=== PATIENT | male | born 1945 | race Hispanic/Latino ===

== ENCOUNTER 2023-11-30 16:52 | Inpatient (IN) | payer MEDICAID, SELFPAY ==
[2023-11-30] MEDS ORDERED: Acetaminophen 325 MG TAB PO PRN (17:27)
[2023-11-30] MEDS ORDERED: D5 1/2 NS w/20 mEq KCL 1,000 ML IV PRN (17:27)
[2023-11-30] MEDS ORDERED: Bisacodyl 10 MG SUPP PR PRN (17:27)
[2023-11-30] MEDS ORDERED: Dextrose 5 %-0.45 % NaCl 1,000 ML IV PRN (17:27)
[2023-11-30] MEDS ORDERED: NS 0.9% w/ 20 MEQ KCL 1,000 ML IV PRN ×2 (17:27)
[2023-11-30] MEDS ORDERED: Electrolyte Replacement Protocol IVPB SCH (17:27)
[2023-11-30] MEDS ORDERED: Senokot S 8.6-50 MG TAB PO PRN (17:27)
[2023-11-30] MEDS ORDERED: Dextrose 50% Abboject 50 ML SYRINGE SLOW IVP PRN (17:27)
[2023-11-30] MEDS ORDERED: Bisacodyl 5 MG TAB PO PRN (17:27)
[2023-11-30] MEDS ORDERED: Ondansetron PF 4 MG/2 ML Vial IVP PRN (17:27)
[2023-11-30] MEDS ORDERED: Sodium Chloride 0.9% 1,000 ML IV PRN ×4 (17:27)
[2023-11-30 18:03] VITALS: BMI 27.7
[2023-11-30 18:10] LABS: Anion Gap 16 mmol/L (10-20); BUN (Urea Nitrogen) 47 mg/dL (8.4-25.7); Calc. Creatinine Clearance 38 mL/min (70-130); Calcium 9.2 mg/dL (7.8-10.44); Carbon Dioxide 15 mmol/L (23-31); Chloride 143 mmol/L (98-107); Estimated GFR 38; Glucose 746 mg/dL (83-110); Potassium 3.9 mmol/L (3.5-5.1); Sodium 170 mmol/L (136-145)
[2023-11-30 18:55] LABS: Legionella Urinary Ag Negative (Negative); Strep pneumo Urine Ag NEGATIVE (NEGATIVE)
[2023-11-30] MEDS: Heparin 5,000 UNITS/ML VIAL SC SCH (20:30)
[2023-11-30] MEDS: Lactulose 20 GM (30 mL) UDCUP PER TUBE SCH (20:30)
[2023-11-30 21:38] LABS: Glucose 712 mg/dL (83-110)
[2023-11-30 22:59] LABS: Anion Gap 17 mmol/L (10-20); BUN (Urea Nitrogen) 46 mg/dL (8.4-25.7); Calc. Creatinine Clearance 33 mL/min (70-130); Calcium 9.3 mg/dL (7.8-10.44); Carbon Dioxide 14 mmol/L (23-31); Chloride 143 mmol/L (98-107); Estimated GFR 33; Glucose 697 mg/dL (83-110); Potassium 3.6 mmol/L (3.5-5.1); Sodium 170 mmol/L (136-145)
[2023-12-01 00:12] LABS: Glucose 658 mg/dL (83-110)
[2023-12-01] MEDS: Sodium Chloride 0.45% 1,000 ML IV SCH ×2 (00:36→10:46)
[2023-12-01] MEDS: Potassium Chloride 20 MEQ in Premix 1 BAG IVPB SCH (00:36)
[2023-12-01] MEDS: INSULIN REGULAR IN 0.9 % NACL 100 ML IVPB SCH (02:23)
[2023-12-01 02:31] LABS: Anion Gap 18 mmol/L (10-20); BUN (Urea Nitrogen) 47 mg/dL (8.4-25.7); Calc. Creatinine Clearance 33 mL/min (70-130); Calcium 9.3 mg/dL (7.8-10.44); Carbon Dioxide 16 mmol/L (23-31); Chloride 138 mmol/L (98-107); Estimated GFR 33; Glucose 589 mg/dL (83-110); Potassium 3.8 mmol/L (3.5-5.1); Sodium 168 mmol/L (136-145)
[2023-12-01 04:01] LABS: Actual Bicarbonate (HCO3v) 15.4 mEq/L (22-28); Base Excess -6.9 mEq/L (-2.0 to +3.0); Calcium, Ionized (venous) 1.28 mmol/L (1.16-1.32); Chloride (VBG) 133 mmol/L (98-106); Hematocrit-VBG 50 % (42.0-52.0); Hemoglobin (Hb) 16.9 g/dL (12.6-17.4); Potassium (VBG) 4.08 mmol/L (3.70-5.30); pH (venous) 7.412 (7.32-7.43)
[2023-12-01 04:29] LABS: #Basophils Less than 0.03 10x3/uL (0.0-0.2); #Eosinphils Less than 0.03 10x3/uL (0.0-0.7); %Basophils 0.1 % (0.0-1.0); %Lymphocytes 6.6 % (21.0-51.0); %Monocytes 5.6 % (0.0-10.0); %Neutrophils 87.4 % (42.0-75.0); Hematocrit 51.1 % (42.0-52.0); Hemoglobin 16.1 g/dL (14.0-18.0); Mean Corpuscular HGB CONC 31.5 g/dL (32.0-36.0); Mean Corpuscular Hemoglobin 31.3 pg (27.0-31.0); Mean Corpuscular Volume 99.2 fL (78.0-98.0); Mean Platelet Volume 10.6 fL (7.4-10.4); Platelet Count 123 10x3/uL (130-400); RBC Distribution Width 14.6 % (11.5-14.5); Red Blood Cell (RBC) Count 5.15 mill/uL (4.70-6.10)
[2023-12-01 04:32] LABS: ALT (SGPT) 65 U/L (8-55); AST (SGOT) 100 U/L (5-34); Albumin 2.8 g/dL (3.4-4.8); Alkaline Phosphatase 98 U/L (40-110); Anion Gap 13 mmol/L (10-20); BUN (Urea Nitrogen) 46 mg/dL (8.4-25.7); Calc. Creatinine Clearance 34 mL/min (70-130); Calcium 8.9 mg/dL (7.8-10.44); Carbon Dioxide 16 mmol/L (23-31); Cardiac Risk 9.7 (Less than 4.5); Chloride 140 mmol/L (98-107); Cholesterol 232 mg/dl (< 200 Desired); Estimated GFR 34; Globulin 3.2 g/dL (2.4-3.5); Glucose 522 mg/dL (83-110); HDL Cholesterol 24 mg/dL (>60 Neg Risk); LDL Cholesterol, Calculated 148 mg/dL; Magnesium 2.8 mg/dL (1.6-2.6); Potassium 3.8 mmol/L (3.5-5.1); Sodium 165 mmol/L (136-145); Triglycerides 300 mg/dL (Less than 150)
[2023-12-01 04:35] LABS: Troponin I 0.139 ng/mL (< 0.028)
[2023-12-01 04:36] LABS: Hemoglobin A1c 10.3 % (4.0-6.0)
[2023-12-01 04:42] LABS: CK (CPK) 8099 U/L (30-200); Lipase 836 U/L (8-78)
[2023-12-01 05:21] LABS: Sodium 165 mmol/L (133-146)
[2023-12-01] MEDS: Pantoprazole 40 MG VIAL IVP SCH (07:57)
[2023-12-01 10:16] LABS: Anion Gap 13 mmol/L (10-20); BUN (Urea Nitrogen) 47 mg/dL (8.4-25.7); Calc. Creatinine Clearance 36 mL/min (70-130); Calcium 8.8 mg/dL (7.8-10.44); Carbon Dioxide 17 mmol/L (23-31); Chloride 137 mmol/L (98-107); Estimated GFR 37; Glucose 341 mg/dL (83-110); Potassium 3.3 mmol/L (3.5-5.1); Sodium 164 mmol/L (136-145)
[2023-12-01 10:42] LABS: Creatinine, Urine 225.45 mg/dL (63-166); Protein, Urine Random Quant 169 mg/dL (1-14); Sodium, Urine Less than 20 mmol/L (Not Available)
[2023-12-01] MEDS: Potassium Bicarbonate/Cit Ac 20 MEQ TAB PO SCH (11:21)
[2023-12-01] MEDS: Azithromycin 500 MG in Sodium Chloride 0.9% 250 ML 250 ML IVPB SCH (13:17)
[2023-12-01 14:27] LABS: Albumin 2.6 g/dL (3.4-4.8); Anion Gap 16 mmol/L (10-20); BUN (Urea Nitrogen) 46 mg/dL (8.4-25.7); BUN/Creatinine Ratio 27.71; Calc. Creatinine Clearance 40 mL/min (70-130); Calcium 8.4 mg/dL (7.8-10.44); Carbon Dioxide 16 mmol/L (23-31); Chloride 132 mmol/L (98-107); Estimated GFR 42; Glucose 258 mg/dL (83-110); Magnesium 2.3 mg/dL (1.6-2.6); Phosphorus 2.4 mg/dL (2.3-4.7); Potassium 3.5 mmol/L (3.5-5.1); Sodium 160 mmol/L (136-145)
[2023-12-01] MEDS: cefTRIAXone\\ROCEPHIN 2 GM in Sodium Chloride 0.9% 100 ML IVPB SCH (16:05)
[2023-12-01 17:41] LABS: Potassium 3.6 mmol/L (3.5-5.1)
[2023-12-01 19:51] LABS: Anion Gap 19 mmol/L (10-20); BUN (Urea Nitrogen) 45 mg/dL (8.4-25.7); Calc. Creatinine Clearance 40 mL/min (70-130); Carbon Dioxide 16 mmol/L (23-31); Chloride 130 mmol/L (98-107); Estimated GFR 42; Potassium 3.6 mmol/L (3.5-5.1)
[2023-12-01 19:52] LABS: Albumin 2.7 g/dL (3.4-4.8); BUN/Creatinine Ratio 26.95; CK (CPK) 7773 U/L (30-200); Calcium 8.9 mg/dL (7.6-10.4); Glucose 223 mg/dL (83-110); Magnesium 2.3 mg/dL (1.6-2.6)
[2023-12-01 19:54] LABS: Sodium 161 mmol/L (136-145)
[2023-12-01 20:03] LABS: Phosphorus 2.6 mg/dL (2.3-4.7)
[2023-12-01 23:03] LABS: Albumin 2.3 g/dL (3.4-4.8); Anion Gap 17 mmol/L (10-20); BUN (Urea Nitrogen) 42 mg/dL (8.4-25.7); BUN/Creatinine Ratio 29.37; Calc. Creatinine Clearance 46 mL/min (70-130); Calcium 7.9 mg/dL (7.8-10.44); Carbon Dioxide 14 mmol/L (23-31); Chloride 126 mmol/L (98-107); Estimated GFR 50; Glucose 312 mg/dL (83-110); Magnesium 1.9 mg/dL (1.6-2.6); Phosphorus 2.1 mg/dL (2.3-4.7); Potassium 4.7 mmol/L (3.5-5.1); Sodium 152 mmol/L (136-145)
[2023-12-01 23:58] LABS: Anion Gap 12 mmol/L (10-20); BUN (Urea Nitrogen) 43 mg/dL (8.4-25.7); Calc. Creatinine Clearance 41 mL/min (70-130); Calcium 8.2 mg/dL (7.8-10.44); Carbon Dioxide 21 mmol/L (23-31); Chloride 123 mmol/L (98-107); Estimated GFR 43; Glucose 307 mg/dL (83-110); Sodium 152 mmol/L (136-145)
[2023-12-02] MEDS: Magnesium 2 GM/50 ML(in water) 2 GM in Premix 1 BAG IVPB SCH (01:07)
[2023-12-02 09:16] LABS: Phosphorus 2.4 mg/dL (2.3-4.7)
[2023-12-02 09:36] LABS: #Basophils Less than 0.03 10x3/uL (0.0-0.2); #Eosinphils Less than 0.03 10x3/uL (0.0-0.7); %Basophils 0.1 % (0.0-1.0); %Monocytes 4.5 % (0.0-10.0); %Neutrophils 76.8 % (42.0-75.0); Hematocrit 41.4 % (42.0-52.0); Hemoglobin 13.4 g/dL (14.0-18.0); Mean Corpuscular HGB CONC 32.4 g/dL (32.0-36.0); Mean Corpuscular Hemoglobin 31.6 pg (27.0-31.0); Mean Corpuscular Volume 97.6 fL (78.0-98.0); Mean Platelet Volume 11.3 fL (7.4-10.4); Platelet Count 59 10x3/uL (130-400); RBC Distribution Width 14.1 % (11.5-14.5); Red Blood Cell (RBC) Count 4.24 mill/uL (4.70-6.10)
[2023-12-02 09:51] LABS: ALT (SGPT) 68 U/L (8-55); AST (SGOT) 115 U/L (5-34); Albumin 2.4 g/dL (3.4-4.8); Alkaline Phosphatase 81 U/L (40-110); Anion Gap 10 mmol/L (10-20); BUN (Urea Nitrogen) 34 mg/dL (8.4-25.7); Bilirubin, Total 0.9 mg/dL (0.2-1.2); Calc. Creatinine Clearance 60 mL/min (70-130); Calcium 8.1 mg/dL (7.8-10.44); Carbon Dioxide 21 mmol/L (23-31); Chloride 121 mmol/L (98-107); Estimated GFR 63; Globulin 2.9 g/dL (2.4-3.5); Glucose 175 mg/dL (83-110); Magnesium 2.7 mg/dL (1.6-2.6); Potassium 3.6 mmol/L (3.5-5.1); Protein, Total 5.3 g/dL (5.8-8.1); Sodium 148 mmol/L (136-145)
[2023-12-02 09:52] LABS: CK (CPK) 6091 U/L (30-200)
[2023-12-02 13:44] LABS: #Basophils Less than 0.03 10x3/uL (0.0-0.2); %Basophils 0.1 % (0.0-1.0); %Eosinophils 0.3 % (0.0-10.0); %Monocytes 4.9 % (0.0-10.0); %Neutrophils 75.2 % (42.0-75.0); Hematocrit 43.5 % (42.0-52.0); Hemoglobin 13.4 g/dL (14.0-18.0); Mean Corpuscular HGB CONC 30.8 g/dL (32.0-36.0); Mean Corpuscular Hemoglobin 31.4 pg (27.0-31.0); Mean Corpuscular Volume 101.9 fL (78.0-98.0); Platelet Count 60 10x3/uL (130-400); RBC Distribution Width 14.2 % (11.5-14.5); Red Blood Cell (RBC) Count 4.27 mill/uL (4.70-6.10)
[2023-12-02 13:57] LABS: ALT (SGPT) 69 U/L (8-55); AST (SGOT) 110 U/L (5-34); Albumin 2.3 g/dL (3.4-4.8); Alkaline Phosphatase 96 U/L (40-110); Anion Gap 12 mmol/L (10-20); BUN (Urea Nitrogen) 29 mg/dL (8.4-25.7); Bilirubin, Total 1.5 mg/dL (0.2-1.2); Calc. Creatinine Clearance 71 mL/min (70-130); Calcium 8.1 mg/dL (7.8-10.44); Carbon Dioxide 16 mmol/L (23-31); Chloride 119 mmol/L (98-107); Estimated GFR 78; Glucose 224 mg/dL (83-110); Magnesium 2.5 mg/dL (1.6-2.6); Potassium 4.2 mmol/L (3.5-5.1); Protein, Total 5.3 g/dL (5.8-8.1); Sodium 143 mmol/L (136-145)
[2023-12-02 14:05] LABS: CK (CPK) 5347 U/L (30-200)
[2023-12-02 14:25] LABS: Band 17 % (5-11); Lymphocytes 3 % (21-51); Neutrophil 80 % (42-75); Platelet Adequacy Comment Platelets Decreased; Polychromasia SLIGHT = 2-3 cells HPF (0-2); Smudge Cells 3.1 %
[2023-12-02 14:36] VITALS: BMI 29.2
[2023-12-02] MEDS: Sodium Bicarbonate 100 MEQ in Dextrose 5% in Water 1,000 ML IV SCH (15:49)
[2023-12-03] MEDS: Insulin Lispro 100 UNIT/ML 10 ML VIAL SC PRN ×2 (00:06→06:03)
[2023-12-03] MEDS: Furosemide 40 MG (4 mL) VIAL SLOW IVP SCH (06:19)
[2023-12-03 10:30] LABS: Hematocrit 39.4 % (42.0-52.0); Mean Corpuscular Hemoglobin 31.4 pg (27.0-31.0); Mean Corpuscular Volume 95.2 fL (78.0-98.0); Mean Platelet Volume 11.9 fL (7.4-10.4); Platelet Count 48 10x3/uL (130-400); RBC Distribution Width 13.6 % (11.5-14.5); Red Blood Cell (RBC) Count 4.14 mill/uL (4.70-6.10)
[2023-12-03 10:31] LABS: #Basophils Less than 0.03 10x3/uL (0.0-0.2); #Eosinphils Less than 0.03 10x3/uL (0.0-0.7); %Eosinophils 0.2 % (0.0-10.0); %Lymphocytes 14.7 % (21.0-51.0); %Neutrophils 79.5 % (42.0-75.0)
[2023-12-03 10:32] LABS: Phosphorus 2.4 mg/dL (2.3-4.7)
[2023-12-03 11:02] LABS: ALT (SGPT) 58 U/L (8-55); AST (SGOT) 55 U/L (5-34); Albumin 2.1 g/dL (3.4-4.8); Alkaline Phosphatase 87 U/L (40-110); Anion Gap 14 mmol/L (10-20); BUN (Urea Nitrogen) 24 mg/dL (8.4-25.7); Bilirubin, Total 1.6 mg/dL (0.2-1.2); CK (CPK) 2103 U/L (30-200); Calc. Creatinine Clearance 81 mL/min (70-130); Calcium 8.4 mg/dL (7.8-10.44); Carbon Dioxide 24 mmol/L (23-31); Chloride 110 mmol/L (98-107); Estimated GFR 88; Globulin 3.3 g/dL (2.4-3.5); Glucose 417 mg/dL (83-110); Magnesium 2.3 mg/dL (1.6-2.6); Potassium 4.2 mmol/L (3.5-5.1); Protein, Total 5.4 g/dL (5.8-8.1); Sodium 144 mmol/L (136-145)
[2023-12-03] MEDS: Insulin Glargine 30 UNITS/0.3 ML VIAL SC SCH (11:57)
[2023-12-03] MEDS: Albumin 25% 25 GM (100 mL) BOT IVPB SCH ×2 (14:23→17:50)
[2023-12-03] MEDS: Furosemide 20 MG (2 mL) VIAL SLOW IVP SCH (14:23)
[2023-12-03 20:37] LABS: Mycoplasma pneumoniae IgG AB 185 U/mL (0-99); Mycoplasma pneumoniae IgM AB Less than 770 U/mL (0-769)
[2023-12-04 06:28] LABS: #Basophils Less than 0.03 10x3/uL (0.0-0.2); %Basophils 0.1 % (0.0-1.0); %Eosinophils 1.1 % (0.0-10.0); %Lymphocytes 19.3 % (21.0-51.0); %Monocytes 6.3 % (0.0-10.0); %Neutrophils 72.8 % (42.0-75.0); Hematocrit 35.3 % (42.0-52.0); Hemoglobin 11.6 g/dL (14.0-18.0); Mean Corpuscular HGB CONC 32.9 g/dL (32.0-36.0); Mean Corpuscular Hemoglobin 30.5 pg (27.0-31.0); Mean Corpuscular Volume 92.9 fL (78.0-98.0); Mean Platelet Volume 11.6 fL (7.4-10.4); Platelet Count 53 10x3/uL (130-400); RBC Distribution Width 13.4 % (11.5-14.5)
[2023-12-04 06:44] LABS: ALT (SGPT) 45 U/L (8-55); AST (SGOT) 47 U/L (5-34); Albumin 3.4 g/dL (3.4-4.8); Alkaline Phosphatase 95 U/L (40-110); Anion Gap 15 mmol/L (10-20); BUN (Urea Nitrogen) 22 mg/dL (8.4-25.7); Bilirubin, Total 1.5 mg/dL (0.2-1.2); CK (CPK) 1073 U/L (30-200); Calc. Creatinine Clearance 92 mL/min (70-130); Calcium 9.3 mg/dL (7.8-10.44); Carbon Dioxide 27 mmol/L (23-31); Chloride 109 mmol/L (98-107); Estimated GFR 92; Globulin 2.7 g/dL (2.4-3.5); Glucose 286 mg/dL (83-110); Magnesium 2.3 mg/dL (1.6-2.6); Potassium 3.2 mmol/L (3.5-5.1); Protein, Total 6.1 g/dL (5.8-8.1); Sodium 148 mmol/L (136-145)
[2023-12-04] MEDS ORDERED: Potassium Chloride 20 MEQ TAB PO SCH (08:00)
[2023-12-04] MEDS: Insulin Glargine 30 UNITS/0.3 ML VIAL SC SCH (08:01)
[2023-12-04] MEDS: Potassium Phosphate 30 MMOL in Sodium Chloride 0.9% 250 ML 250 ML IVPB SCH (09:30)
[2023-12-04] MEDS: Dextrose 5% in Water 500 ML IV SCH (12:59)
[2023-12-04] MEDS: Metolazone 5 MG TAB PO SCH (16:57)
[2023-12-04] MEDS ORDERED: Dextrose 5% in Water 1,000 ML IV PRN (21:20)
[2023-12-04] MEDS ORDERED: Glucagon 1 MG/ML KIT IM PRN (21:20)
[2023-12-04] MEDS: Insulin Lispro 100 UNIT/ML 10 ML VIAL SC PRN (21:26)
[2023-12-05] MEDS: Dextrose 5% in Water 1,000 ML IV SCH (00:41)
[2023-12-05 05:01] LABS: Anion Gap 14 mmol/L (10-20); BUN (Urea Nitrogen) 19 mg/dL (8.4-25.7); Calc. Creatinine Clearance 93 mL/min (70-130); Calcium 9.5 mg/dL (7.8-10.44); Carbon Dioxide 29 mmol/L (23-31); Chloride 110 mmol/L (98-107); Estimated GFR 94; Glucose 231 mg/dL (83-110); Potassium 2.7 mmol/L (3.5-5.1); Sodium 150 mmol/L (136-145)
[2023-12-05] MEDS: Potassium Chloride 20 MEQ in Premix 1 BAG IVPB SCH (06:27)
[2023-12-05] MEDS: Metolazone 2.5 MG TAB PO SCH (08:39)
[2023-12-05] MEDS: Potassium Chloride 40 MEQ in Sodium Chloride 0.45% 1,000 ML IV SCH (12:53)
[2023-12-05 16:57] LABS: Potassium 3.1 mmol/L (3.5-5.1)
[2023-12-06] MEDS: Potassium Chloride 20 MEQ in Premix 1 BAG IVPB SCH (05:48)
[2023-12-06 06:52] LABS: Anion Gap 15 mmol/L (10-20); BUN (Urea Nitrogen) 20 mg/dL (8.4-25.7); Calc. Creatinine Clearance 98 mL/min (70-130); Calcium 9.4 mg/dL (7.8-10.44); Carbon Dioxide 23 mmol/L (23-31); Chloride 109 mmol/L (98-107); Estimated GFR 95; Glucose 220 mg/dL (83-110); Potassium 3.2 mmol/L (3.5-5.1); Sodium 144 mmol/L (136-145)
[2023-12-06 07:42] VITALS: TEMP 99
[2023-12-06] MEDS: Potassium Chloride 20 MEQ TAB PO SCH (10:14)
[2023-12-06 16:50] VITALS: BP 134/70
== END 2023-12-06 19:00 | disposition home or self-care (01) | DRG 637 ==
LOC: IMCU/EMU 16:52 → T4-B 12-05 14:00
PROVIDERS: ADMIT Family Medicine; ATTEND Hospitalist
PROC: 0D9670Z Drainage of Stomach with Drainage Device, Via Natural or Artificial Opening (ICD-10-PCS; principal; 2023-11-30)
PROC: 3E0G76Z Introduction of Nutritional Substance into Upper GI, Via Natural or Artificial Opening (ICD-10-PCS; 2023-11-30)
PROC: 30233J1 Transfusion of Nonautologous Serum Albumin into Peripheral Vein, Percutaneous Approach (ICD-10-PCS; 2023-12-03)
DX: E11.11 Type 2 diabetes mellitus with ketoacidosis with coma (principal); G93.41 Metabolic encephalopathy; J18.9 Pneumonia, unspecified organism; K85.90 Acute pancreatitis without necrosis or infection, unspecified; E87.0 Hyperosmolality and hypernatremia; N17.9 Acute kidney failure, unspecified; E72.20 Disorder of urea cycle metabolism, unspecified; E87.1 Hypo-osmolality and hyponatremia; M62.82 Rhabdomyolysis; Z51.5 Encounter for palliative care; Z66 Do not resuscitate; R13.10 Dysphagia, unspecified; G30.9 Alzheimer's disease, unspecified; F02.C0 Dementia in other diseases classified elsewhere, severe, without behavioral disturbance, psychotic disturbance, mood disturbance, and anxiety; E11.65 Type 2 diabetes mellitus with hyperglycemia; D69.6 Thrombocytopenia, unspecified; R74.01 Elevation of levels of liver transaminase levels; Z79.4 Long term (current) use of insulin; Z79.2 Long term (current) use of antibiotics; Z98.890 Other specified postprocedural states; Z98.41 Cataract extraction status, right eye; Z98.42 Cataract extraction status, left eye
CPT/HCPCS: 36415; 36416; 71045; 74018; 80048; 80053; 80061; 82140; 82550; 82570; 82805; 83036; 83690; 83735; 84100; 84156; 84300; 84443; 84484; 85025; 87449; 87899; 93306; J0456; J0696; J1644; J1815; J1940; J2470; J3475; J3480; J7042; J7050; J7070; P9047